=== PATIENT | female | born 1965 | race Caucasian/White ===

== ENCOUNTER 2017-12-08 10:57 | Day surgery (SDC) | payer BC ==
[2017-12-01 12:44] VITALS: BMI 25.0
[2017-12-01 13:03] LABS: INR 1.1 (0.9-1.1); PTT PATIENT 28.5 SECONDS (21.0-31.0)
[2017-12-01 13:04] LABS: BASO % 0.8 %; BASO ABS # 0.04 K/uL (0-0.2); EOS % 2.6 %; EOS ABS # 0.14 K/uL (0-0.5); HEMATOCRIT 37.1 % (37-47); HEMOGLOBIN 11.8 g/dL (12.0-16.0); IG# 0.01 K/uL (0.00-0.02); LYMPH % 39.9 %; LYMPH ABS # 2.12 K/uL (1.2-3.4); MEAN CELL VOLUME 79.3 fL (80-100); MEAN CORPUSCULAR HEMOGLOBIN 25.2 pg (25-34); MEAN CORPUSCULAR HGB CONC 31.8 g/dl (32-36); MEAN PLATELET VOLUME 10.6 fL (7.4-10.4); MONO % 7.5 %; PLATELET COUNT 280 K/uL (130-400); RED CELL DISTRIBUTION WIDTH CV 16.6 % (11.5-14.5); RED CELL DISTRIBUTION WIDTH SD 48.2 fL (36.4-46.3); WHITE BLOOD COUNT 5.31 K/uL (4.8-10.8)
--- NOTE | 2017-12-01 13:26 | PAT Medication Instructions ---
Service Date Dec 01, 2017. Current Home Medication List Ascorbic Acid (Vitamin C), 1 TAB PO DAILY Biotin (Biotin), 1 TAB PO QAM Cholecalciferol (Vitamin D3), 1 TAB PO DAILY Coenzyme Q10 (Ubidecarenone) (Co Q-10), 150 MG PO DAILY Cyanocobalamin (Vitamin B-12), 1,000 MCG PO DAILY Lorazepam (Ativan), 0.5 MG PO BID PRN for prn Oxycodone Ir (Roxicodone Ir), 5 MG PO Q6H PRN for Pain Vitamin E (Vitamin E), 1 TAB PO DAILY [herceptin], 1 DOSE IV every 3 weeks Medication Instructions For Your Scheduled Surgery -Contact your oncologist for instructions for: [herceptin], 1 DOSE IV every 3 weeks - Hold the following medications 2 weeks prior to surgery: Coenzyme Q10 (Ubidecarenone) (Co Q-10), 150 MG PO DAILY Vitamin E (Vitamin E), 1 TAB PO DAILY - Hold the following medications the morning of surgery: Ascorbic Acid (Vitamin C), 1 TAB PO DAILY Biotin (Biotin), 1 TAB PO QAM Cholecalciferol (Vitamin D3), 1 TAB PO DAILY Cyanocobalamin (Vitamin B-12), 1,000 MCG PO DAILY - Take the following medications the morning of surgery with a sip of water: Lorazepam (Ativan), 0.5 MG PO BID PRN for prn (if needed) Oxycodone Ir (Roxicodone Ir), 5 MG PO Q6H PRN for Pain (if needed, can be taken up to four hours before surgery) - Take the following medications as scheduled the night before surgery: Lorazepam (Ativan), 0.5 MG PO BID PRN for prn (if needed) Oxycodone Ir (Roxicodone Ir), 5 MG PO Q6H PRN for Pain (if needed) If you have any questions please call us at [phone] or [phone] or [phone]
[2017-12-01 14:17] LABS: CALCIUM 9.1 mg/dl (8.5-10.1); CREATININE 0.63 mg/dl (0.60-1.20); POTASSIUM 3.9 mmol/L (3.5-5.1)
--- NOTE | 2017-12-07 11:45 | HISTORY & PHYSICAL EXAMINATION ---
DATE OF ADMISSION: 12/08/2017 CHIEF COMPLAINT: Left shoulder pain and limited range of motion. HISTORY OF PRESENT ILLNESS: Patient is a 52-year-old female with history of hypertension with anesthesia who is scheduled for left shoulder manipulation under anesthesia due to adhesive capsulitis. PAST MEDICAL HISTORY: History of hypertension, depression, breast CA. PAST SURGICAL HISTORY: Breast mastectomy. MEDICATIONS: Herceptin IV infusion weekly, Ativan 1 mg t.i.d. p.r.n., oxycodone 5 mg q. 4 hours p.r.n., Biotin 1 mg daily, CoQ10 10 mg daily, Tylenol p.r.n. ALLERGIES: PENICILLIN, IODINE, PROCHLORPERAZINE, ASPIRIN. SOCIAL HISTORY AND REVIEW OF SYSTEMS: Noncontributory. PHYSICAL EXAMINATION: GENERAL: Well nourished, well developed female who appears stated age. HEENT: Normocephalic, atraumatic, extraocular movements intact, oropharynx pink and moist. NECK: Supple without adenopathy. LUNGS: Clear to auscultation bilaterally. HEART: Regular rate and rhythm. ABDOMEN: Soft, nontender, nondistended. EXTREMITIES: The left shoulder demonstrates limited range of motion when compared to the right. She has limitation both actively and passively. This is consistent with adhesive capsulitis. X-RAYS: X-rays of the left shoulder reviewed and are within normal limits. ASSESSMENT: Left shoulder adhesive capsulitis. PLAN: Risks versus benefits were discussed, consent was obtained. We will proceed with left shoulder manipulation under anesthesia associated with the subacromial injections as indicated. This procedure was to be performed at the hospital due to history of hypertension with anesthesia.
[~2017-12-08] VITALS: Ht 162.6 cm; Wt 67.0 kg
--- NOTE | 2017-12-08 10:51 | History & Physical Bridge Note ---
H&P Re-Evaluation Bridge Note: I have examined the patient, reviewed the History & Physical and in the interval since the performance of the History & Physical I have noted the following changes of clinical significance: No changes noted
[~2017-12-08 10:57] MED LIST: ASCO10003 PO; BIOT1CAP9 PO; CHECK SCOPOLAMINE PATCH PLACEMENT SCH; CHOL1000 PO; CLINDAMYCIN 600 MG/54 ML D5W IV SCH; COEN150C PO; CYAN10005 PO; HERCEPTIN IV; LORA-741 PO; OXYC1TAB3 PO; ROPIVACAINE 0.5% 5 MG/ML 30 ML VIAL ONE; SCOPOLAMINE 1.5 MG TDSY TD SCH; VITA1TAB4 PO
[2017-12-08] MEDS ORDERED: MIDAZOLAM HCL 1 MG/ML 2ML VIAL ONE ×3 (11:03→12:27)
[2017-12-08] MEDS ORDERED: LIDOCAINE HCL 2% 2 ML VIAL (20MG/ML) ONE ×2 (11:03→12:27)
[2017-12-08] MEDS ORDERED: PROPOFOL IV EMULSION 10 MG/ML 20 ML VIAL IV ONE ×2 (11:03→12:27)
[2017-12-08] MEDS ORDERED: FENTANYL CITRATE INJ 50 MCG/1 ML 2 ML VIAL ONE ×2 (11:03→12:27)
[2017-12-08 11:35] VITALS: BMI 25.0
[2017-12-08 11:45] VITALS: BP 162/82; PULSE 70; TEMP 37; O2SAT 100; Ht 162.6 cm; Wt 67.0 kg
[2017-12-08 11:59] LABS: BASO % 0.6 %; BASO ABS # 0.03 K/uL (0-0.2); EOS % 1.7 %; EOS ABS # 0.08 K/uL (0-0.5); HEMATOCRIT 36.3 % (37-47); HEMOGLOBIN 11.7 g/dL (12.0-16.0); LYMPH % 35.5 %; LYMPH ABS # 1.68 K/uL (1.2-3.4); MEAN CELL VOLUME 78.4 fL (80-100); MEAN CORPUSCULAR HEMOGLOBIN 25.3 pg (25-34); MEAN PLATELET VOLUME 10.6 fL (7.4-10.4); MONO % 9.7 %; MONO ABS # 0.46 K/uL (0.11-0.59); NEUT % 52.5 %; NEUT ABS # 2.48 K/uL (1.4-6.5); PLATELET COUNT 250 K/uL (130-400); RED CELL DISTRIBUTION WIDTH CV 16.2 % (11.5-14.5); RED CELL DISTRIBUTION WIDTH SD 46.8 fL (36.4-46.3); WHITE BLOOD COUNT 4.73 K/uL (4.8-10.8)
[2017-12-08 12:05] LABS: MEAN CORPUSCULAR HGB CONC 32.2 g/dl (32-36)
[2017-12-08] MEDS ORDERED: BUPIVACAINE/EPINEPHRINE 0.5% MPF 1:200,000 30 ML VIAL ONE (12:21)
[2017-12-08] MEDS ORDERED: BUPIVACAINE 0.5 % 5 MG/1 ML MPF 30ML VIAL ONE (12:21)
[2017-12-08] MEDS ORDERED: SODIUM CHLORIDE 0.9% PF 50 ML VIAL ONE ×2 (12:21→12:45)
[2017-12-08] MEDS ORDERED: METHYLPREDNISOLONE ACETATE 80 MG/ML VIAL IM STA (12:43)
[2017-12-08] MEDS ORDERED: NURSING VERBAL MED ORDER ONE (12:45)
--- NOTE | 2017-12-08 13:13 | [facility] Post Operative Brief Note ---
Immediate Operative Summary Operative Date Dec 08, 2017. Pre-Operative Diagnosis Left Shoulder adhesive capsulitis Post-Operative Diagnosis same Procedure(s) Performed Left Shoulder Manipulation under anesthesia, subacromial injection. Surgeon Dr. Alvaro Olivares Car Dealer Surgeon(s) none Estimated Blood Loss 0mL Findings Consistent with Post-Op Diagnosis Specimens none, Per Surgeon Anesthesia Type General Complication(s) none Disposition Accompanied Pt To Recover: no Disposition: Recovery Room / PACU
[2017-12-08] MEDS ORDERED: SODIUM CHLORIDE 0.9% 1000ML 1,000 ML IV SCH (13:19)
[2017-12-08] MEDS ORDERED: RXC5 PO (13:21)
[2017-12-08] MEDS ORDERED: METHYLPREDNISOLONE ACETATE 80 MG/ML VIAL IM ONE (13:23)
--- NOTE | 2017-12-08 13:26 | Discharge Instructions ---
Discharge Instructions Date of Service Dec 08, 2017. Visit Reason for Visit: Left Shoulder Adhesive Capsulitis Discharge Discharge Diagnosis / Problem: Left shoulder adhesive capsulitis Discharge Goals Goal(s): Decrease discomfort, Improve function Activity Recommendations Activity Limitations: resume your previous activity Lifting Limitations: gradually increase as tolerated Exercise/Sports Limitations: as tolerated May Resume Sexual Activity: when tolerated Shower/Bathe: no limitations Driving or Machine Use: no limitations Anesthesia . Post Anesthesia Instructions: If you have had General Anesthesia or IV Sedation: * Do not drive today. * Resume driving when surgeon permits. * Do not make important decisions or sign legal documents today. * Call surgeon for: 1. Temperature elevations greater than 101 degrees F. 2. Uncontrollable pain. 3. Excessive bleeding. 4. Persistent nausea and vomiting. 5. Medication intolerance (nausea, vomiting or rash). * For nausea and vomiting use only clear liquids such as: tea, soda, bouillon until nausea subsides, then gradually increase diet as tolerated. * If you have any concerns or questions, call your surgeon's office. If physician is unavailable and it is an emergency, call 911 or go to the nearest emergency room. . Instructions / Follow-Up Instructions / Follow-Up Activity as tolerated left upper extremity. Frequent ice as needed. Resume physical therapy daily x 2 weeks. Follow-up with Dr Olivares ~ 14 days. Call [phone] for appt/questions. Diet Recommendations Recommended Home Diet: resume previous diet Procedures Procedures Performed: Left Shoulder Manipulation under anesthesia, subacromial injection. Pending Studies Studies pending at discharge: no Medical Emergencies . Who to Call and When: Medical Emergencies: If at any time you feel your situation is an emergency, please call 911 immediately. . Non-Emergent Contact Non-Emergency issues call your: Surgeon Call Non-Emergent contact if: your pain is not controlled . . "Provider Documentation" section prepared by Gregg Honeycutt PA-C. . [place] Drug Monitoring Program Search Results: patient reviewed within database, no issues identified
[2017-12-08] MEDS ORDERED: OXYCODONE/ACETAMINOPHEN 5-325 TAB PO PRN ×2 (13:30)
[2017-12-08 13:57] VITALS: BP 143/75; PULSE 63; TEMP 36.6; O2SAT 96
[2017-12-08 14:30] VITALS: BP 149/64; PULSE 65; TEMP 36.5; O2SAT 99
[2017-12-08 15:00] VITALS: BP 162/67; PULSE 73; TEMP 36.5; O2SAT 98
--- NOTE | 2017-12-08 15:06 | Anesthesiology Progress Note ---
Anesthesia Post Op Note Date & Time Dec 08, 2017 at 15:05 Vital Signs Pain Intensity: 0 Vital Signs Past 12 Hours Date Time Temp Pulse Resp B/P (MAP) Pulse Ox O2 Delivery O2 Flow Rate FiO2 12/08/17 13:57 36.6 63 18 143/75 96 Room Air 12/08/17 13:53 36.4 12/08/17 13:49 60 20 99 12/08/17 13:49 59 20 12/08/17 13:46 148/76 12/08/17 13:44 60 17 12/08/17 13:44 60 17 98 12/08/17 13:41 152/77 12/08/17 13:39 62 17 99 12/08/17 13:39 61 17 12/08/17 13:36 153/76 12/08/17 13:34 60 15 12/08/17 13:34 59 15 100 12/08/17 13:33 59 16 12/08/17 13:33 59 16 100 12/08/17 13:31 155/79 12/08/17 13:28 61 19 12/08/17 13:28 61 19 100 12/08/17 13:26 161/84 12/08/17 13:23 64 17 100 12/08/17 13:23 63 17 12/08/17 13:21 154/81 12/08/17 13:19 156/81 12/08/17 13:18 36.4 69 16 156/81 100 Oxymask 10 12/08/17 11:45 37 70 18 162/82 (108) 100 Room Air Notes Mental Status: alert / awake / arousable, participated in evaluation Pt Amnestic to Procedure: Yes Nausea / Vomiting: adequately controlled Pain: adequately controlled Airway Patency, RR, SpO2: stable & adequate BP & HR: stable & adequate Hydration State: stable & adequate Anesthetic Complications: no major complications apparent
--- NOTE | 2017-12-08 16:06 | OPERATIVE REPORT ---
DATE OF OPERATION: 12/08/2017 PREOPERATIVE DIAGNOSIS: Adhesive capsulitis of the left shoulder. POSTOPERATIVE DIAGNOSIS: Adhesive capsulitis of the left shoulder. PROCEDURE: Manipulation under anesthesia, left shoulder, with intraarticular corticosteroid injection. SURGEON: Alvaro Olivares MD ANESTHESIA: General mask. COMPLICATIONS: None. DESCRIPTION OF PROCEDURE: Following induction of adequate general mask anesthesia, the patient's left shoulder was examined under anesthesia and was found to have significant decrease in external rotation as well as abduction. Using a forced abduction with the scapula stabilized, as well as forward flexion, marked crepitus was noted as range of motion was regained. Full range of motion was not possible without fear of fracture. The lateral aspect of the shoulder was prepped with alcohol and injected with 80 mL of Depo-Medrol and 4 mL of 0.5% Marcaine. The patient tolerated the procedure well. I attest to the content of the Intraoperative Record and any orders documented therein. Any exception s are noted below.
== END 2017-12-08 15:10 | disposition home or self-care (01) ==
LOC: C.ACU 10:57
DX: M75.02 Adhesive capsulitis of left shoulder (principal); I10 Essential (primary) hypertension; F32.9 Major depressive disorder, single episode, unspecified; Z85.3 Personal history of malignant neoplasm of breast; Z90.12 Acquired absence of left breast and nipple; Z88.0 Allergy status to penicillin; Z88.6 Allergy status to analgesic agent